=== PATIENT | female | born 1990 | race Caucasian/White ===

== ENCOUNTER 2017-12-22 11:30 | Emergency (ER) | payer OTHER ==
[~2017-12-22] VITALS: Ht 165.1 cm; Wt 107.5 kg
[~2017-12-22 11:30] MED LIST: ACET-8386 PO
[2017-12-22 11:41] VITALS: BP 123/69
--- NOTE | 2017-12-22 11:52 | NUR ---
PT AMBULATED TO OF3.
--- NOTE | 2017-12-22 11:54 | NUR ---
27F BIB SELF C/O EPIGASTRIC PAIN, ACHING, NON-RADIATING, 4/10 X THIS MORNING; PT STATES NO N/V/D AT THIS TIME; ABDOMEN SOFT, NON-TENDER, ACTIVE BOWEL SOUNDS X 4 QUADRANTS; PT AA&OX4, BL LUNG SOUNDS CLEAR, RR EVEN/UNLABORED, SKIN IS WARM/DRY/INTACT, WITH EVEN AND STEADY GAIT; PT RESTING IN OF, POSITIONED FOR COMFORT; ER MD MADE AWARE OF STATUS. WILL CONTINUE TO MONITOR.
--- NOTE | 2017-12-22 12:17 | NUR ---
LAB AT [facility].
[2017-12-22 12:27] LABS: BASOPHILS # (AUTO) 0.1 K/uL (0.00-0.22); BASOPHILS % (AUTO) 1.2 % (0.0-2.0); EOSINOPHILS # (AUTO) 0.1 K/uL (0-0.4); EOSINOPHILS % (AUTO) 1.8 % (0.0-4.0); HEMATOCRIT 39.1 % (36-48); HEMOGLOBIN 13.2 g/dL (12.0-16.0); LYMPHOCYTES # (AUTO) 1.6 K/uL (2.5-16.5); LYMPHOCYTES % (AUTO) 26.1 % (20.5-51.1); MEAN CORPUSCULAR HEMOGLOBIN 30 pg (27-31); MEAN CORPUSCULAR HGB CONC 34 g/dL (33-37); MEAN CORPUSCULAR VOLUME 90 fL (80-94); MONOCYTES # (AUTO) 0.3 K/uL (0.8-1.0); MONOCYTES % (AUTO) 5.2 % (1.7-9.3); NEUTROPHILS % (AUTO) 65.7 % (42.2-75.2); PLATELET COUNT (AUTO) 198 K/uL (140-450); RED BLOOD CELL COUNT(AUTO) 4.35 MIL/uL (4.20-5.40); RED CELL DISTRIBUTION WIDTH 11.6 % (11.6-13.7); WHITE BLOOD COUNT (AUTO) 6.1 K/uL (4.8-10.8)
[2017-12-22 12:29] LABS: APPEARANCE,URINE TURBID (CLEAR); BILIRUBIN,URINE NEGATIVE (NEGATIVE); BLOOD, URINE NEGATIVE (NEGATIVE); COLOR,URINE YELLOW (YELLOW); LEUKOCYTE ESTERASE ,URINE 2+ (NEGATIVE); NITRITE, URINE NEGATIVE (NEGATIVE); UGLUCOSE NEGATIVE (NEGATIVE)
--- NOTE | 2017-12-22 12:45 | NUR ---
Patient being evaluated by DR ROBLES at bedside.
[2017-12-22] MEDS ORDERED: ALUMINUM HYD/MAG/SIMETHICONE 30 ML UDC PO ONE (12:50)
[2017-12-22 13:00] LABS: ALBUMIN 3.4 g/dL (3.4-5.0); ANION GAP 14.2 (8-16); CREATININE 0.7 mg/dL (0.6-1.3); POTASSIUM 4.2 mmol/L (3.5-5.1); TOTAL BILIRUBIN 0.2 mg/dL (0.0-1.0)
--- NOTE | 2017-12-22 13:37 | NUR ---
PT APPEARS TO BE RESTING COMFORTABLY IN OF; RR EVEN/UNLABORED; WILL CONTINUE TO MONITOR.
[2017-12-22 13:48] LABS: RBC,URINE 0-5 (RARE) /HPF (0-5); WBC,URINE 16-25 (MOD) /HPF (0-5)
[2017-12-22 13:56] VITALS: BP 138/86
--- NOTE | 2017-12-22 13:56 | NUR ---
Patient discharged with v/s stable. Written and verbal after care instructions given and explained. Patient alert, oriented and verbalized understanding of instructions. Ambulatory with steady gait. All questions addressed prior to discharge. ID band removed. Patient advised to follow up with PMD. Rx of ZANTAC 150MG TAB given. Patient educated on indication of medication including possible reaction and side effects. Opportunity to ask questions provided and answered.
--- NOTE | 2017-12-24 11:25 | NUR ---
CALLED PT AT NUMBER PROVIDED; LEFT MESSAGE FOR PATIENT TO CALL BACK REGARDING PRESCRIPTION NEEDED FOR URINE CULTURE RESULTS. PER ER MD DR. RAMÍREZ PT NEEDS PRESCRIPTION FOR KEFLEX 500 MG TID (#21)
== END 2017-12-22 13:56 | disposition home or self-care (01) ==
LOC: MED 11:30
DX: K29.20 Alcoholic gastritis without bleeding (principal); Z90.49 Acquired absence of other specified parts of digestive tract
CPT/HCPCS: 36415; 80053; 81001; 81025; 82150; 83690; 84703; 85025; 87086; 87186; 99284